=== PATIENT | male | born 1980 | race Caucasian/White ===

== ENCOUNTER 2022-12-25 09:40 | Outpatient (CLI) | payer BC | END 2022-12-25 09:41 | disposition home or self-care (01) | LOC: CSHCT 09:40 | PROVIDERS: ATTEND Specialist | DX: I77.810 Thoracic aortic ectasia (principal); N62 Hypertrophy of breast | CPT/HCPCS: 71275 ==

== ENCOUNTER 2024-01-05 07:52 | Outpatient (CLI) | payer BC | END 2024-01-05 07:53 | disposition home or self-care (01) | LOC: CSHCT 07:52 | PROVIDERS: ATTEND Specialist | DX: I77.810 Thoracic aortic ectasia (principal); N62 Hypertrophy of breast | CPT/HCPCS: 71275 ==